=== PATIENT | male | born 1970 ===

== ENCOUNTER 2017-12-07 08:08 | Emergency (ER) | payer OTHER ==
[~2017-12-07] VITALS: Ht 193 cm; Wt 111.1 kg
[2017-12-07] MEDS ORDERED: AMOX-CLAV 875-1 EACH PO ×2 (10:43)
[2017-12-07] MEDS ORDERED: MUCINEX600 MG PO ×2 (10:44)
[2017-12-07] MEDS ORDERED: FLONASE16 GM NASAL ×2 (10:44)
== END 2017-12-07 09:38 | disposition home or self-care (01) ==
LOC: ER 08:08
DX: H72.91 Unspecified perforation of tympanic membrane, right ear (principal)

== ENCOUNTER 2017-12-07 10:17 | Outpatient (CLI) | payer OTHER ==
[~2017-12-07] VITALS: Ht 195.6 cm; Wt 108.9 kg
[2017-12-07] MEDS ORDERED: AMOX-CLAV 875-1 EACH PO ×2 (10:43)
[2017-12-07] MEDS ORDERED: FLONASE16 GM NASAL ×2 (10:44)
[2017-12-07] MEDS ORDERED: MUCINEX600 MG PO ×2 (10:44)
== END 2017-12-07 14:49 | disposition home or self-care (01) ==
LOC: OFIC 805 10:17
DX: J32.8 Other chronic sinusitis (principal); H65.01 Acute serous otitis media, right ear